=== PATIENT | female | born 2000 | race Caucasian/White ===

== ENCOUNTER 2024-07-11 21:57 | Inpatient (IN) | payer SELFPAY ==
[2024-07-11 22:06] VITALS: BP 107/68; PULSE 107; RESP 18; TEMP 36.7; O2SAT 100; BMI 19.7
--- NOTE | 2024-07-11 22:19 | ED.C_ITS ---
HPI - Psych 2 General: Chief Complaint: Psychiatric Symptoms Stated Complaint: behavioral Time Seen by Provider: 07/11/24 22:04 Source: patient Mode of arrival: EMS Limitations: altered mental status History of Present Illness: Patient is a 23-year-old female presents to ED today via EMS for mental health evaluation. She was reportedly found attempting to sleep in a restaurant bathroom. Patient tells me she was sending gmails to her mother and father whom she reportedly lives with. Patient has never been to our facility before. She will not tell me her name or date of . When she first arrived, she is wearing headphones and hums answers to my questions. She eventually removes the headphones. She tells me that she is destined for greatness and that she is on admission to become the best version of herself in 33 steps. She tells me she is the own doctor of herself. She repeatedly refers to the universe is in control of her tariq. When asked about suicidal ideation she tells me that she has already made an agreement with the universe and the [employer] bianchi and is okay with her final tariq . She tells me she does not want to kill herself. She does tell me that she ate a fourth of a marijuana edible gummy today. Treatments prior to arrival: none Related Data Allergies Allergy/AdvReac Type Severity Reaction Status Date / Time No Known Allergies Allergy Verified 07/11/24 22:16 Review of Systems 2 General: Reports: ROS unobtainable due to medical condition and ROS unobtainable due to mental status [facility] ED 2 Female Reproductive History: Date of last menstrual period: 06/22/24 Physical Exam 2 Const: COMMON NORMALS: no acute distress, average body habitus, patient oriented x3, no limitations, healthy appearing, alert and well nourished G ENERAL APPEARANCE: cooperative Resp: COMMON NORMALS: normal respiratory effort and clear to auscultation bilaterally AUSCULTATION: clear to auscultation bilaterally Cardio: COMMON NORMALS: regular rate and regular rhythm RATE: regular rate RHYTHM: regular rhythm Neuro: COMMON NORMALS: patient oriented x3, moves all extremities, no focal motor deficits and no sensory deficits noted SENSORIUM/ORIENTATION: Yes alert Psych: COMMON NORMALS: mental status grossly normal, cooperative, denies homicidal ideation and denies suicidal ideation APPEARANCE: Yes grossly normal ATTITUDE: Yes bizarre ACTIVITY/MOTOR BEHAVIOR: Yes appropriate eye contact and No psychomotor agitation SPEECH: Yes slow THOUGHT PROCESS: I llogical thought process present ATTENTION/CONCENTRATION: Yes attention grossly intact and Yes concentration grossly intact MEMORY/COGNITION: Yes memory grossly intact INSIGHT: Limited insight present (Psych) JUDGEMENT: Limited judgement present (Psych) Course 2 Consultations: Consultation #1: Dr. Briones-accepts to NPU Vital Signs: Vital signs: Vital Signs Temperature 98.0 F 07/11/24 22:06 Pulse Rate 107 H 07/11/24 22:06 Respiratory Rate 18 07/11/24 22:06 Blood Pressure 107/68 07/11/24 22:06 Pulse Oximetry 100 07/11/24 22:06 Oxygen Delivery Me thod Room Air 07/11/24 22:06 MDM - Psych Medical Decision Making Patient will be an admit to NPU. She was placed on a 96-hour hold. Labs overall benign. Positive for marijuana. Sodium low at 128. Spoke to Dr. Salazar and we will give 1L NS and have NPU recheck in the morning. Potassium slightly low at 3.3. She was given an oral dose here. Differential Diagnosis Likely acute psychosis and drug-induced psychotic disorder Medical Records I reviewed the patient's medical records. Lab Data I reviewed the patient's lab results. 07/11/24 22:48 07/11/24 22:48 Laboratory Results WBC 10.53 10^3/uL (3.29-11.43) 07/11/24 22:48 RBC 4.81 10^6/uL (3.85-5.65) 07/11/24 22:48 Hgb 12.80 g/dL (11.27-16.99) 07/11/24 22:48 Hct 38.6 % (36-47) 07/11/24 22:48 MCV 80.2 fl (85-98) L 07/11/24 22:48 MCH 26.6 pg (27-33) L 07/11/24 22:48 MCHC 33.2 g/dL (30-55) 07/11/24 22:48 RDW 13.1 % (12.1-15.1) 07/11/24 22:48 Plt Count 255 10^3/cmm (157-399) 07/11/24 22:48 MPV 9.7 fL (7.4-10.4) 07/11/24 22:48 Neut % (Auto) 79.9 % 07/11/24 22:48 Lymph % (Auto) 11.9 % 07/11/24 22:48 [place] % (Auto) 7.6 % 07/11/24 22:48 Eos % (Auto) 0.1 % 07/11/24 22:48 Baso % (Auto) 0.2 % 07/11/24 22:48 Neut # (Auto) 8.42 10^3/uL (1.8-7.7) H 07/11/24 22:48 Lymph # (Auto) 1.3 10^3/uL (0.8-4.8) 07/11/24 22:48 [place] # (Auto) 0.8 10^3/uL (0.2-0.9) 07/11/24 22:48 Eos # (Auto) 0.0 10^3/uL (0.0-0.8) 07/11/24 22:48 Baso # (Auto) 0.0 10^3/uL (0.0-0.1) 07/11/24 22:48 Nucleated RBC % (auto) 0 % 07/11/24 22:48 Nucleated RBCs # 0.0 /100WBC 07/11/24 22:48 Sodium 128 mmol/L (136-145) L 07/11/24 22:48 Potassium 3.3 mmol/L (3.5-5.1) L 07/11/24 22:48 Chloride 92 mmol/L (98-107) L 07/11/24 22:48 Carbon Dioxide 22 mmol/L (22-29) 07/11/24 22:48 Anion Gap 17.3 (5-19) 07/11/24 22:48 BUN 12 mg/dL (6-20) 07/11/24 22:48 Creatinine 0.6 mg/dL (0.5-0.9) 07/11/24 22:48 GFR Calculation 121.8 mL/min (90-130) 07/11/24 22:48 Glucose 145 mg/dL (65-115) H 07/11/24 22:48 Calculated Osmolality 268 mOsm/kg (285-295) L 07/11/24 22:48 Calcium 9.0 mg/dL (8.5-10.5) 07/11/24 22:48 Total Bilirubin 0.3 mg/dL (0.15-1.2) 07/11/24 22:48 AST 25 U/L (0-32) 07/11/24 22:48 ALT 21 U/L (0-33) 07/11/24 22:48 Alkaline Phosphatase 77 U/L (35-105) 07/11/24 22:48 Total Protein 7.2 g/dL (6.6-8.7) 07/11/24 22:48 Albumin 4.3 g/dL (3.5-5.2) 07/11/24 22:48 Globulin 2.9 g/dL (1.3-4.6) 07/11/24 22:48 HCG, Qual Negative (Negative) 07/11/24 22:48 Salicylates < 0.3 mg/dL (3-10) L 07/11/24 22:48 Urine Opiates Screen Negative ng/mL (Negative) 07/11/24 22:32 Acetaminophen < 5.0 ug/mL (10-30) L 07/11/24 22:48 Ur Barbiturates Screen Negative ng/mL (Negative) 07/11/24 22:32 Ur Phencyclidine Scrn Negative ng/mL (Negative) 07/11/24 22:32 Ur Amphetamines Screen Negative ng/mL (Negative) 07/11/24 22:32 U Benzodiazepines Scrn Negative ng/mL (Negative) 07/11/24 22:32 Urine Cocaine Screen Negative ng/mL (Negative) 07/11/24 22:32 U Marijuana (THC) Screen Positive ng/mL (Negative) H 07/11/24 22:32 Ethyl Alcohol < 10 mg/dL (0-10) 07/11/24 22:48 No radiology studies performed this visit Discharge Plan Discharge Patient Disposition: Admitted As Inpatient Clinical Impression: Acute psychosis, Hyponatremia Condition: Stable Coding Level of Care Code ED [employer] for [employer] Mei
[2024-07-11 23:05] LABS: Basophils % 0.2 %; Eosinophils % 0.1 %; Hematocrit 38.6 % (36-47); Lymphocytes # 1.3 10^3/uL (0.8-4.8); Lymphocytes % 11.9 %; Mean Corpuscular HGB Conc 33.2 g/dL (30-55); Mean Corpuscular Hemoglobin 26.6 pg (27-33); Mean Corpuscular Volume 80.2 fl (85-98); Mean Platelet Volume 9.7 fL (7.4-10.4); Monocytes # 0.8 10^3/uL (0.2-0.9); Monocytes % 7.6 %; Neutrophils # 8.42 10^3/uL (1.8-7.7); Neutrophils % 79.9 %; Nucleated Red Blood Cells % 0 %; Platelet Count 255 10^3/cmm (157-399); Red Blood Count 4.81 10^6/uL (3.85-5.65); Red Cell Distribution Width 13.1 % (12.1-15.1); White Blood Count 10.53 10^3/uL (3.29-11.43)
[2024-07-11 23:20] LABS: HCG, Serum Qual Negative (Negative)
[2024-07-11 23:21] LABS: Amphetamines Screen Urine Negative (Negative); Barbiturates Screen Urine Negative (Negative); Benzodiazepines Screen Urine Negative (Negative); Cocaine Screen Urine Negative (Negative); Opiate Screen Urine Negative (Negative); PCP Screen Urine Negative (Negative); THC Screen Urine Positive (Negative)
[2024-07-11 23:22] LABS: Alanine Aminotransferase 21 U/L (0-33); Albumin Level 4.3 g/dL (3.5-5.2); Alkaline Phosphatase 77 U/L (35-105); Anion Gap 17.3 (5-19); Aspartate Amino Transferase 25 U/L (0-32); Blood Urea Nitrogen 12 mg/dL (6-20); Carbon Dioxide 22 mmol/L (22-29); Chloride 92 mmol/L (98-107); Creatinine Clr Calc Pharmacy 121.4752; Globulin 2.9 g/dL (1.3-4.6); Glomerular Filtration Rate 121.8 mL/min (90-130); Glucose 145 mg/dL (65-115); Osmolality Calculated 268 mOsm/kg (285-295); Potassium 3.3 mmol/L (3.5-5.1); Sodium 128 mmol/L (136-145); Total Bilirubin 0.3 mg/dL (0.15-1.2); Total Protein 7.2 g/dL (6.6-8.7)
--- NOTE | 2024-07-11 23:32 | PC.NURSE ---
96 HH Pt served with copy of 96 HH by this RN and security. Pt stated that she was at the [facility] when she took a 1/4 gummy from her sister, then had to leave due to closing. Pt stated that she made it to the [facility] and used their restroom where she decided to lay down and try to sober up. Pt stated that she lives with her parents and has not been admitted to this facility in the past. Pt is calm, alert and oriented, denied need for further education. Pt stated the she has [place] and needs a glass of water. Provider notified.
[2024-07-11 23:36] LABS: Acetaminophen < 5.0 ug/mL (10-30); Alcohol Level < 10 mg/dL (0-10); Salicylate < 0.3 mg/dL (3-10)
[2024-07-12] MEDS: sodium chloride 0.9% 1,000 ML 999 ML IV (00:22)
[2024-07-12] MEDS: potassium chloride ER 20 mEq Tablet 40 MEQ PO (00:22)
[2024-07-12 02:06] VITALS: BP 113/73; PULSE 90; RESP 16; TEMP 36.8; O2SAT 100
[2024-07-12 06:00] VITALS: BP 101/69; PULSE 95; RESP 16; TEMP 36.8; O2SAT 98
--- NOTE | 2024-07-12 11:23 | PC.NURSE ---
Morning assessment During morning assessment, patient somewhat irritable. Patient hesitant to answer this senior mortgage underwriter's questions. With patient's permission, this nurse talked with patient's mother. The mother asked me to not tell her daughter, but that she thinks her daughter would benefit from some psychiatric help. Dr. allen notified.
--- NOTE | 2024-07-12 11:44 | W.PM.NPUH&PS ---
Providers/Chief Complaint Admitting Physician: Wade Briones MD Chief Complaint: behavioral HPI NPU History of Present Illness Jassi Loja is a 23 year old female Chief Complaint: Psychiatric Symptoms Stated Complaint: behavioral Time Seen by Provider: 07/11/24 22:04 Source: patient Mode of arrival: EMS Limitations: altered mental status History of Present Illness: Patient is a 23-year-old female presents to ED today via EMS for mental health evaluation. She was reportedly found attempting to sleep in a restaurant bathroom. Patient tells me she was sending gmails to her mother and father whom she reportedly lives with. Patient has never been to our facility before. She will not tell me her name or date of . When she first arrived, she is wearing headphones and hums answers to my questions. She eventually removes the headphones. She tells me that she is destined for greatness and that she is on admission to become the best version of herself in 33 steps. She tells me she is the own doctor of herself. She repeatedly refers to the universe is in control of her tariq. When asked about suicidal ideation she tells me that she has already made an agreement with the universe and the [employer] bian[facility] and is okay with her final tariq . She tells me she does not want to kill herself. She does tell me that she ate a fourth of a marijuana edible gummy today. Treatments prior to arrival: none She was admitted to the Neuropsychiatric unit for definitive treatment for those issues. She is unknown to [facility] Psychiatry through inpatient or outpatient services and presented reporting: Chief complaint Found passed out after consuming a CBD gummy for the first time. History of the present complaint The patient reports that they had taken a quarter of a CBD gummy for the first time, which they believe may have contributed to their current situation. They were in town to connect with friends and get things done, but after taking the gummy, they were found by the police passed out. The patient denies any other substance use or explanation for being out of sorts. They have no history of psychiatric hospitalizations or outpatient treatment for mental health issues, except for a past experience with anorexia about eight to ten years ago. During the time of their anorexia, the patient experienced depression and anxiety, which included symptoms such as difficulty sleeping and a decreased appetite. They also had passive thoughts of , wishing not to wake up, and engaged in self-starvation as a form of self-injury. The patient recalls experiencing hallucinations due to malnourishment and had intrusive thoughts related to body image, which led to restrictive eating behaviors. They were treated for anorexia in a hospital setting, but details about the treatment location are unclear. The patient describes feeling lonely and expresses a strong desire to find friends who understand and accept them. They came to town with the intention of meeting new people and forming connections. The patient denies current feelings of depression or suicidal ideation, stating that they feel okay at present. They also deny any paranoia, hallucinations, or thoughts of self-harm or harm to others. The patient has a family history of anorexia on their father's side, with an aunt who suffered from the condition and from a fall related to malnourishment. They are unsure about other mental health issues in the family. The patient reports a history of social challenges, including difficulty forming close relationships and experiencing bullying in school, which led to them being homeschooled and eventually obtaining a GED. They have not pursued further education or training beyond this. The patient identifies as a female attracted to men and has not been in a significant romantic relationship. They live with their parents in a cabin-like home and occasionally have their sister's children visit. The patient denies any history of legal issues, substance abuse, or significant medical problems aside from anorexia. They report having regular menstrual cycles now, although they were irregular during the time of their anorexia. Mental health history Diagnosed with anorexia approximately 8 to 10 years ago, with associated depression and anxiety during that period. Experienced severe depression with symptoms including insomnia, decreased appetite, and passive suicidal ideation, which involved thoughts of not waking up. Engaged in self-starvation as a form of self-injurious behavior. No history of psychiatric hospitalization or outpatient treatment for mental health issues other than anorexia. No regular use of alcohol, nicotine, or other substances. No family history of mental health issues reported, except for an aunt on the father's side who also had anorexia. No history of hearing voices or experiencing paranoia, except for hallucinations during the period of severe malnourishment. No current suicidal ideation or thoughts of self-harm. Social history Lives with parents in a cabin-like home. Has an older sister who has children; the sister's kids visit occasionally. No history of alcohol, tobacco, or drug use, except for a one-time use of a CBD gummy. No regular alcohol or cannabis use. No history of legal issues. Left school around 7th or 8th grade due to bullying and obtained a GED. Has had difficulty forming close relationships and feels socially isolated. Identifies as a female attracted to men, with a belief in monogamous relationships. 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 Desires to find friends who understand and accept her. No pets mentioned. Meds NPU Home Medications Medication Instructions Recorded Confirmed Last Taken Type No Known Home Medications 07/12/24 07/12/24 Unknown History Allergies Allergy/AdvReac Type Severity Reaction Status Date / Time No Known Allergies Allergy Verified 07/11/24 22:16 Mental Status Exam MSE Comments: This is an underweight versus cachectic white female in hospital scrubs with androgenous appearance with limited grooming and limited eye contact. No abnormal movements except for mild psychomotor retardation. She was somewhat cooperative with exam with mild to moderate distress. Her speech was decreased in rate and decreased in volume. Mood described as OK. Her affect was flat and subdued and robotic. Thought process was linear and organized. Thought content: Patient denied suicidal or homicidal ideation. There were no delusions reported but ideas of reference and some odd thinking noted and reported. She denied any auditory or visual hallucinations. She did not appear to be responding to internal stimuli. No current thoughts of self-harm or suicide. No current thoughts of harming others. No visual hallucinations or delusions reported. History of anxiety and depression, but not currently reported as severe. Social challenges and loneliness mentioned as stressors. Described current mood as okay. Attention and concentration were limited and memory was also somewhat unreliable but none were formally tested. She is alert and oriented x . Insight and judgment are poor and impulse control is impaired. Vitals/I&O/Wt Last Vital Signs Temp 98.2 F 07/12/24 06:00 Pulse 95 07/12/24 06:00 Resp 16 07/12/24 06:00 BP 101/69 07/12/24 06:00 Pulse Ox 98 07/12/24 06:00 O2 Del Method Room Air 07/12/24 06:00 07/11/24 07/12/24 07/12/24 22:59 06:59 14:59 Intake Total 0 / 0 1000 / 1000 Balance 0 / 0 1000 / 1000 Weight last 48 hrs Weight 52.163 kg Data NPU 07/11/24 22:48 07/12/24 11:37 A&P Assessment and plan (1) Acute psychosis: (2) Cannabis use disorder: (3) Anxiety disorder: (4) History of anorexia nervosa: (5) Depression: (6) Autism spectrum disorder: Plan This is a 23-year-old white female with a long history of anorexia and issues with body image and weight with continued difficulties with social connectedness with no significant history of treatment for any issues other than the anorexia. The assessment indicates a history of anorexia, which was associated with depression and anxiety during the initial episode. There is no current indication of suicidal ideation or active depression, but there is a noted history of social challenges and feelings of loneliness. The patient does not report any current hallucinations or paranoia, and there is no indication of substance abuse issues beyond the recent incident involving a CBD gummy. Presentation raises question of cluster a or possibly cluster c personality disorders versus autistic spectrum disorder. 1. Continue off of medication for now. 2. Continue every 15 minute checks for safety. 3. Encourage individual, group and milieu therapy. 4. Obtain collateral information. 5. Determine whether patient being completely straightforward about addiction issues. Involuntary Hold Information 96 Hour Hold: 96 Hour Involuntary Admission: Yes 96 Hour Hold Ending Date: 07/15/24 96 Hour Hold Ending Time: 22:45 Other Hold: Hold End Date: 07/15/24 Attestations NPU Medical Necessity Statement*: Inpatient hospitalization is medically necessary and the clinically appropriate intervention at this time. We will monitor medications and make changes as indicated. She will be in the hospital over 2 midnights. Likely length of stay 4 to 6 days. Coding Level of Care Code Acute Code for [facility] Fwd Diagnoses Acute psychosis F23 Cannabis use disorder F12.90 Anxiety disorder F41.9 History of anorexia nervosa Z86.59 Depression F32.A Autism spectrum disorder F84.0
[2024-07-12 12:07] LABS: Alanine Aminotransferase 22 U/L (0-33); Albumin Level 4.4 g/dL (3.5-5.2); Alkaline Phosphatase 70 U/L (35-105); Anion Gap 14.5 (5-19); Aspartate Amino Transferase 23 U/L (0-32); Blood Urea Nitrogen 6 mg/dL (6-20); Calcium 9.2 mg/dL (8.5-10.5); Carbon Dioxide 21 mmol/L (22-29); Chloride 103 mmol/L (98-107); Creatinine Clr Calc Pharmacy 145.7702; Globulin 3.1 g/dL (1.3-4.6); Glomerular Filtration Rate 150.3 mL/min (90-130); Glucose 89 mg/dL (65-115); Osmolality Calculated 275 mOsm/kg (285-295); Potassium 4.5 mmol/L (3.5-5.1); Sodium 134 mmol/L (136-145); Total Bilirubin 0.4 mg/dL (0.15-1.2); Total Protein 7.5 g/dL (6.6-8.7)
[2024-07-12 14:00] VITALS: BP 114/76; PULSE 73; RESP 17; TEMP 36.6; O2SAT 100
--- NOTE | 2024-07-12 18:24 | PC.NURSE ---
Patient's mother is Melody,
[2024-07-12 22:00] VITALS: BP 105/72; PULSE 86; RESP 18; TEMP 36.8; O2SAT 98
[2024-07-13 06:00] VITALS: BP 116/79; PULSE 89; RESP 18; TEMP 36.7; O2SAT 99
[2024-07-13] MEDS: blistex lip oint 7 gm Tube 1 APPLIC TOPICAL (09:05)
[2024-07-13 14:00] VITALS: BP 117/75; PULSE 89; RESP 18; TEMP 36.7; O2SAT 98
--- NOTE | 2024-07-13 15:36 | P.NPUPN_ITS ---
Subjective NPU 2 Subjective: Patient presented today reporting that she is doing fine. She continues to endorse a desire to not be on medication and not be here engaged in any treatment. She was visited by her mother who raised the concern about her being given the medication. We discussed the fact that there are some as needed medications that are available to patients and situations of anxiety or insomnia etc. that would not necessarily be prescribed at discharge. Conversation about people being forced to take medications on the unit transpired and we talked about people being in different situations and that yes there are people that are in the hospital that are in some sort of situation where medications are not optional. She denied any side effects to her medication and we discussed consideration of discharge in the next 48 hours if there are no indications of ongoing psychotic concerns. Mental Status Exam 2 MSE Comments: This is an underweight versus cachectic white female in hospital scrubs with androgenous appearance with limited grooming and limited eye contact. No abnormal movements except for mild psychomotor retardation. She was somewhat cooperative with exam with mild to moderate distress. Her speech was decreased in rate and decreased in volume. Mood described as OK. Her affect was flat and subdued and robotic. Thought process was linear and organized. Thought content: Patient denied suicidal or homicidal ideation. There were no delusions reported but ideas of reference and some odd thinking noted and reported. She denied any auditory or visual hallucinations. She did not appear to be responding to internal stimuli. No current thoughts of self-harm or suicide. No current thoughts of harming others. No visual hallucinations or delusions reported. History of anxiety and depression, but not currently reported as severe. Social challenges and loneliness mentioned as stressors. Described current mood as okay. Attention and concentration were limited and memory was also somewhat unreliable but none were formally tested. She is alert and oriented x . Insight and judgment are poor and impulse control is impaired. Vitals/I&O/Wt Last Vital Signs Temp 98.1 F 07/13/24 14:00 Pulse 89 07/13/24 14:00 Resp 18 07/13/24 14:00 BP 117/75 07/13/24 14:00 Pulse Ox 98 07/13/24 14:00 O2 Del Method Room Air 07/13/24 06:00 Weight last 48 hrs Weight 52.163 kg Data NPU 07/11/24 22:48 07/12/24 11:37 A&P Assessment and plan (1) Acute psychosis: (2) Cannabis use disorder: (3) Anxiety disorder: (4) History of anorexia nervosa: (5) Depression: (6) Autism spectrum disorder: Plan This is a 23-year-old white female with a long history of anorexia and issues with body image and weight with continued difficulties with social connectedness with no significant history of treatment for any issues other than the anorexia. The assessment indicates a history of anorexia, which was associated with depression and anxiety during the initial episode. There is no current indication of suicidal ideation or active depression, but there is a noted history of social challenges and feelings of loneliness. The patient does not report any current hallucinations or paranoia, and there is no indication of substance abuse issues beyond the recent incident involving a CBD gummy. Presentation raises question of cluster a or possibly cluster c personality disorders versus autistic spectrum disorder. 1. Continue off of medication for now. 2. Continue every 15 minute checks for safety. 3. Encourage individual, group and milieu therapy. 4. Obtain collateral information. 5. Determine whether patient being completely straightforward about addiction issues. Involuntary Hold Information 2 96 Hour Hold: 96 Hour Involuntary Admission: Yes 96 Hour Hold Ending Date: 07/15/24 96 Hour Hold Ending Time: 22:45 Other Hold: Hold End Date: 07/15/24 Attestations NPU 2 Medical Necessity Statement*: Inpatient hospitalization is medically necessary and the clinically appropriate intervention at this time. We will monitor medications and make changes as indicated. Likely length of stay 2-4 days. Coding Level of Care Code Acute Code for [facility] Fwd Diagnoses Acute psychosis F23 Cannabis use disorder F12.90 Anxiety disorder F41.9 History of anorexia nervosa Z86.59 Depression F32.A Autism spectrum disorder F84.0
[2024-07-13 20:09] VITALS: BP 106/68; PULSE 63; RESP 16; TEMP 36.3; O2SAT 98
[2024-07-14 06:00] VITALS: BP 108/64; PULSE 87; RESP 16; TEMP 36.7; O2SAT 100
[2024-07-14 14:00] VITALS: BP 113/74; PULSE 78; RESP 18; TEMP 36.6; O2SAT 99
--- NOTE | 2024-07-14 19:36 | P.NPUPN_ITS ---
Subjective NPU 2 Subjective: Patient presented today reporting that she is doing fine. She finally did make the call to consider getting connected with Medicaid however got very concerned about the questions as she did many times during interviews with this mortgage loan underwriter. Eventually they were allowed to call her parents to make sure the information was correct and the Medicaid network and threat support specialist was met with significant resistance from family once again seeming to be very sensitive about some seemingly basic information being shared with external resources. She continues to deny any current issues and reports a desire to go home and lacking interest in any referrals or resources. We discussed the possibility of discharge in the next 48 hours. Mental Status Exam 2 MSE Comments: This is an underweight versus cachectic white female in hospital scrubs with androgenous appearance with limited grooming and limited eye contact. No abnormal movements except for mild psychomotor retardation. She was somewhat cooperative with exam with mild to moderate distress. Her speech was decreased in rate and decreased in volume. Mood described as OK. Her affect was flat and subdued and robotic. Thought process was linear and organized. Thought content: Patient denied suicidal or homicidal ideation. There were no delusions reported but ideas of reference and some odd thinking noted and reported. She denied any auditory or visual hallucinations. She did not appear to be responding to internal stimuli. No current thoughts of self-harm or suicide. No current thoughts of harming others. No visual hallucinations or delusions reported. History of anxiety and depression, but not currently reported as severe. Social challenges and loneliness mentioned as stressors. Described current mood as okay. Attention and concentration were limited and memory was also somewhat unreliable but none were formally tested. She is alert and oriented x . Insight and judgment are poor and impulse control is impaired. Vitals/I&O/Wt Last Vital Signs Temp 98 F 07/14/24 14:00 Pulse 78 07/14/24 14:00 Resp 18 07/14/24 14:00 BP 113/74 07/14/24 14:00 Pulse Ox 99 07/14/24 14:00 O2 Del Method Room Air 07/14/24 06:00 Data NPU 07/11/24 22:48 07/12/24 11:37 A&P Assessment and plan (1) Acute psychosis: (2) Cannabis use disorder: (3) Anxiety disorder: (4) History of anorexia nervosa: (5) Depression: (6) Autism spectrum disorder: Plan This is a 23-year-old white female with a long history of anorexia and issues with body image and weight with continued difficulties with social connectedness with no significant history of treatment for any issues other than the anorexia. The assessment indicates a history of anorexia, which was associated with depression and anxiety during the initial episode. There is no current indication of suicidal ideation or active depression, but there is a noted history of social challenges and feelings of loneliness. The patient does not report any current hallucinations or paranoia, and there is no indication of substance abuse issues beyond the recent incident involving a CBD gummy. Presentation raises question of cluster a or possibly cluster c personality disorders versus autistic spectrum disorder. 1. Continue off of medication for now. 2. Continue every 15 minute checks for safety. 3. Encourage individual, group and milieu therapy. 4. Obtain collateral information. Involuntary Hold Information 2 96 Hour Hold: 96 Hour Involuntary Admission: Yes 96 Hour Hold Ending Date: 07/15/24 96 Hour Hold Ending Time: 22:45 Other Hold: Hold End Date: 07/15/24 Attestations NPU 2 Medical Necessity Statement*: Inpatient hospitalization is medically necessary and the clinically appropriate intervention at this time. We will monitor medications and make changes as indicated. Likely length of stay 1-3 days. Coding Level of Care Code Acute Code for [facility] Fwd Diagnoses Acute psychosis F23 Cannabis use disorder F12.90 Anxiety disorder F41.9 History of anorexia nervosa Z86.59 Depression F32.A Autism spectrum disorder F84.0
[2024-07-14 20:12] VITALS: BP 114/71; PULSE 71; RESP 16; TEMP 36.3; O2SAT 95
[2024-07-15 06:00] VITALS: BP 139/82; PULSE 74; RESP 16; TEMP 36.7; O2SAT 100
--- NOTE | 2024-07-15 11:20 | P.NPUDS_ITS ---
Diagnoses at Discharge Discharge Diagnosis (1) Acute psychosis: Status: Acute (2) Cannabis use disorder: Status: Acute (3) Anxiety disorder: Status: Acute (4) History of anorexia nervosa: Status: Acute (5) Depression: Status: Acute (6) Autism spectrum disorder: Status: Acute Reason for Visit Reason for Visit: behavioral Brief History: History of Present Illness Jassi Loja is a 23 year old female Chief Complaint: Psychiatric Symptoms Stated Complaint: behavioral Time Seen by Provider: 07/11/24 22:04 Source: patient Mode of arrival: EMS Limitations: altered mental status History of Present Illness: Patient is a 23-year-old female presents to ED today via EMS for mental health evaluation. She was reportedly found attempting to sleep in a restaurant bathroom. Patient tells me she was sending gmails to her mother and father whom she reportedly lives with. Patient has never been to our facility before. She will not tell me her name or date of . When she first arrived, she is wearing headphones and hums answers to my questions. She eventually removes the headphones. She tells me that she is destined for greatness and that she is on admission to become the best version of herself in 33 steps. She tells me she is the own doctor of herself. She repeatedly refers to the universe is in control of her tariq. When asked about suicidal ideation she tells me that she has already made an agreement with the universe and the holy bianchi and is okay with her final tariq . She tells me she does not want to kill herself. She does tell me that she ate a fourth of a marijuana edible gummy today. Treatments prior to arrival: none She was admitted to the Neuropsychiatric unit for definitive treatment for those issues. She is unknown to [facility] through inpatient or outpatient services and presented reporting: Chief complaint Found passed out after consuming a CBD gummy for the first time. History of the present complaint The patient reports that they had taken a quarter of a CBD gummy for the first time, which they believe may have contributed to their current situation. They were in town to connect with friends and get things done, but after taking the gummy, they were found by the police passed out. The patient denies any other substance use or explanation for being out of sorts. They have no history of psychiatric hospitalizations or outpatient treatment for mental health issues, except for a past experience with anorexia about eight to ten years ago. During the time of their anorexia, the patient experienced depression and anxiety, which included symptoms such as difficulty sleeping and a decreased appetite. They also had passive thoughts of , wishing not to wake up, and engaged in self-starvation as a form of self-injury. The patient recalls experiencing hallucinations due to malnourishment and had intrusive thoughts related to body image, which led to restrictive eating behaviors. They were treated for anorexia in a hospital setting, but details about the treatment location are unclear. The patient describes feeling lonely and expresses a strong desire to find friends who understand and accept them. They came to town with the intention of meeting new people and forming connections. The patient denies current feelings of depression or suicidal ideation, stating that they feel okay at present. They also deny any paranoia, hallucinations, or thoughts of self-harm or harm to others. The patient has a family history of anorexia on their father's side, with an aunt who suffered from the condition and from a fall related to malnourishment. They are unsure about other mental health issues in the family. The patient reports a history of social challenges, including difficulty forming close relationships and experiencing bullying in school, which led to them being homeschooled and eventually obtaining a GED. They have not pursued further education or training beyond this. The patient identifies as a female attracted to men and has not been in a significant romantic relationship. They live with their parents in a cabin-like home and occasionally have their sister's children visit. The patient denies any history of legal issues, substance abuse, or significant medical problems aside from anorexia. They report having regular menstrual cycles now, although they were irregular during the time of their anorexia. Mental health history Diagnosed with anorexia approximately 8 to 10 years ago, with associated depression and anxiety during that period. Experienced severe depression with symptoms including insomnia, decreased appetite, and passive suicidal ideation, which involved thoughts of not waking up. Engaged in self-starvation as a form of self-injurious behavior. No history of psychiatric hospitalization or outpatient treatment for mental health issues other than anorexia. No regular use of alcohol, nicotine, or other substances. No family history of mental health issues reported, except for an aunt on the father's side who also had anorexia. No history of hearing voices or experiencing paranoia, except for hallucinations during the period of severe malnourishment. No current suicidal ideation or thoughts of self-harm. Social history Lives with parents in a cabin-like home. Has an older sister who has children; the sister's kids visit occasionally. No history of alcohol, tobacco, or drug use, except for a one-time use of a CBD gummy. No regular alcohol or cannabis use. No history of legal issues. Left school around 7th or 8th grade due to bullying and obtained a GED. Has had difficulty forming close relationships and feels socially isolated. Identifies as a female attracted to men, with a belief in monogamous relationships. Worked briefly at a [employer] for less than a month. Desires to find friends who understand and accept her. No pets mentioned. Involuntary Hold Information 96 Hour Hold: 96 Hour Involuntary Admission: Yes 96 Hour Hold Ending Date: 07/15/24 96 Hour Hold Ending Time: 22:45 Other Hold: Hold End Date: 07/15/24 Mental Status Exam MSE Comments: This is an underweight versus cachectic white female in hospital scrubs with androgenous appearance with limited grooming and limited eye contact. No abnormal movements except for mild psychomotor retardation. She was somewhat cooperative with exam with mild to moderate distress. Her speech was decreased in rate and decreased in volume. Mood described as OK. Her affect was flat and subdued and robotic. Thought process was linear and organized. Thought content: Patient denied suicidal or homicidal ideation. There were no delusions reported but ideas of reference and some odd thinking noted and reported. She denied any auditory or visual hallucinations. She did not appear to be responding to internal stimuli. No current thoughts of self-harm or suicide. No current thoughts of harming others. No visual hallucinations or delusions reported. History of anxiety and depression, but not currently reported as severe. Social challenges and loneliness mentioned as stressors. Described current mood as okay. Attention and concentration were limited and memory was also somewhat unreliable but none were formally tested. She is alert and oriented x . Insight and judgment are poor and impulse control is impaired. Discharge Data Studies Completed and Pending: Laboratory Results WBC 10.53 10^3/uL (3. 29-11.43) 07/11/24 22:48 RBC 4.81 10^6/uL (3.8 5-5.65) 07/11/24 22:48 Hgb 12.80 g/dL (11.27 -16.99) 07/11/24 22:48 Hct 38.6 % (36-47) 07/11/24 22:48 MCV 80.2 fl (85-98) L 07/11/24 22:48 MCH 26.6 pg (27-33) L 07/11/24 22:48 MCHC 33.2 g/dL (30-55) 07/11/24 22:48 RDW 13.1 % (12.1-15.1 ) 07/11/24 22:48 Plt Count 255 10^3/cmm (157 -399) 07/11/24 22:48 MPV 9.7 fL (7.4-10.4) 07/11/24 22:48 Neut % (Auto) 79.9 % 07/11/24 22:48 Lymph % (Auto) 11.9 % 07/11/24 22:48 Gulf % (Auto) 7.6 % 07/11/24 22:48 Eos % (Auto) 0.1 % 07/11/24 22:48 Baso % (Auto) 0.2 % 07/11/24 22:48 Neut # (Auto) 8.42 10^3/uL (1.8 -7.7) H 07/11/24 22:48 Lymph # (Auto) 1.3 10^3/uL (0.8- 4.8) 07/11/24 22:48 Gulf # (Auto) 0.8 10^3/uL (0.2- 0.9) 07/11/24 22:48 Eos # (Auto) 0.0 10^3/uL (0.0- 0.8) 07/11/24 22:48 Baso # (Auto) 0.0 10^3/uL (0.0- 0.1) 07/11/24 22:48 Nucleated RBC % (a uto) 0 % 07/11/24 22:48 Nucleated RBCs # 0.0 /100WBC 07/11/24 22:48 Sodium 134 mmol/L (136-1 45) L 07/12/24 11:37 Potassium 4.5 mmol/L (3.5-5 .1) 07/12/24 11:37 Chloride 103 mmol/L (98-10 7) 07/12/24 11:37 Carbon Dioxide 21 mmol/L (22-29) L 07/12/24 11:37 Anion Gap 14.5 (5-19) 07/12/24 11:37 BUN 6 mg/dL (6-20) 07/12/24 11:37 Creatinine 0.5 mg/dL (0.5-0. 9) 07/12/24 11:37 GFR Calculation 150.3 mL/min (90- 130) H 07/12/24 11:37 Glucose 89 mg/dL (65-115) 07/12/24 11:37 Calculated Osmolal ity 275 mOsm/kg (285- 295) L 07/12/24 11:37 Calcium 9.2 mg/dL (8.5-10 .5) 07/12/24 11:37 Total Bilirubin 0.4 mg/dL (0.15-1 .2) 07/12/24 11:37 AST 23 U/L (0-32) 07/12/24 11:37 ALT 22 U/L (0-33) 07/12/24 11:37 Alkaline Phosphata se 70 U/L (35-105) 07/12/24 11:37 Total Protein 7.5 g/dL (6.6-8.7 ) 07/12/24 11:37 Albumin 4.4 g/dL (3.5-5.2 ) 07/12/24 11:37 Globulin 3.1 g/dL (1.3-4.6 ) 07/12/24 11:37 HCG, Qual Negative (Negati ve) 07/11/24 22:48 Salicylates < 0.3 mg/dL (3-10 ) L 07/11/24 22:48 Urine Opiates Scre en Negative ng/mL (N egative) 07/11/24 22:32 Acetaminophen < 5.0 ug/mL (10-3 0) L 07/11/24 22:48 Ur Barbiturates Sc reen Negative ng/mL (N egative) 07/11/24 22:32 Ur Phencyclidine S crn Negative ng/mL (N egative) 07/11/24 22:32 Ur Amphetamines Sc reen Negative ng/mL (N egative) 07/11/24 22:32 U Benzodiazepines Scrn Negative ng/mL (N egative) 07/11/24 22:32 Urine Cocaine Scre en Negative ng/mL (N egative) 07/11/24 22:32 U Marijuana (THC) Screen Positive ng/mL (N egative) H 07/11/24 22:32 Ethyl Alcohol < 10 mg/dL (0-10) 07/11/24 22:48 Vitals: Last Vital Signs Temp 98.0 F 07/15/24 06:00 Pulse 74 07/15/24 06:00 Resp 16 07/15/24 06:00 BP 139/82 07/15/24 06:00 Pulse Ox 100 07/15/24 06:00 O2 Del Method Room Air 07/15/24 06:00 Discharge Plan Discharge Patient Disposition: Home Condition: Stable Prescriptions: No Action No Known Home Medications Discharge Orders: Discharge Order (Routine); Ordered 07/15/24 Ordered By: Wade Briones Discharge Diet: Regular Discharge Activity: Resume usual activity Patient Instructions: Opioid Safety Discharge Attestations NPU Time Spent in Discharge Care*: less than 30 min Specific Discharge Activities: Specific discharge activities: educating patient, discussing with hospice case manager/social workers/dc planners, documenting/other paperwork and evaluating patient/reviewing data Coding Level of Care Code Acute Code for g Fwd Diagnoses Acute psychosis F23 Cannabis use disorder F12.90 Anxiety disorder F41.9 History of anorexia nervosa Z86.59 Depression F32.A Autism spectrum disorder F84.0
[2024-07-15 11:23] VITALS: BP 139/82; PULSE 74; RESP 16; TEMP 36.7; O2SAT 100
== END 2024-07-15 13:18 | disposition home or self-care (01) | DRG 885 ==
LOC: ER 22:39 → NP 23:50
PROVIDERS: Admitting Provider Psychiatry & Neurology Psychiatry; Emergency Provider Physician Assistant; Visit Provider Psychiatry & Neurology Psychiatry
DX: F23 Brief psychotic disorder (principal); R64 Cachexia; Z68.1 Body mass index [BMI] 19.9 or less, adult; F32.A Depression, unspecified; F41.9 Anxiety disorder, unspecified; F12.90 Cannabis use, unspecified, uncomplicated; F84.0 Autistic disorder
CPT/HCPCS: 36415; 80053; 80306; 80307; 84703; 85025; 96360; 97150; 97165; 99285; J7030